=== PATIENT | female | born 1950 | race Caucasian/White ===

== ENCOUNTER → 2020-02-09 | Outpatient (CLI) | payer OTHER ==
[~2020-02-09] MED LIST: ASCRIPTIN ENTER81 MG PO; CARVEDILOL12.5 MG PO; CETIRIZINE10 MG PO; LISINOPRIL40 MG PO; METFORMIN500 MG PO; MULTIPLE VITAMI1 CAP PO; OMEGA-31000 MG PO; VITAMIN D1000 IU PO
== END | disposition home or self-care (01) ==
LOC: CT 09:00
DX: R35.0 Frequency of micturition (principal)

== ENCOUNTER 2023-05-07 15:25 | Emergency (ER) | payer OTHER ==
[~2023-05-07] VITALS: Ht 157.4 cm
[~2023-05-07 15:25] MED LIST changes: +METFORMIN HYD1000 MG PO; -METFORMIN500 MG PO
[2023-05-07] MEDS ORDERED: GLIPIZIDE5 M1 PO (15:42)
[2023-05-07] MEDS ORDERED: ROSUVASTATIN CA10 MG PO (15:43)
[2023-05-07] MEDS ORDERED: MAGNESIUM OXID400 MG PO (15:44)
[2023-05-07 16:04] LABS: BASO % 0.2 % (0.0-1.0); EOS # 0.1 10*3/uL (0.0-0.4); EOS % 1.2 % (1.0-4.0); HEMATOCRIT 38.8 % (37.0-47.0); LYMPH # 2.2 10*3/uL (1.3-4.4); LYMPH % 21.9 % (27.0-41.0); MEAN CELL VOLUME 88.8 fl (81.0-99.0); MEAN CORPUSCULAR HGB 29.1 pg (27.0-31.0); MEAN CORPUSCULAR HGB CONC 32.7 g/dl (33.0-37.0); MEAN PLATELET VOLUME 10.9 fl (9.6-12.3); MONO # 0.8 10*3/uL (0.1-1.0); MONO % 7.8 % (3.0-9.0); NEUT # 6.9 10*3/uL (2.3-7.9); NEUT % 68.6 % (47.0-73.0); PLATELET COUNT AUTOMATED 236 10*3/uL (130-400); RED BLOOD COUNT 4.37 10*6/uL (4.10-5.10); RED CELL DISTRI WIDTH 12.7 % (0-14.5)
[2023-05-07 16:06] LABS: BILIRUBIN Negative (Negative); BLOOD Negative (Negative); CLARITY Cloudy (Clear); COLOR Yellow (Yellow); GLUCOSE 3+ (Negative); KETONE Trace (Negative); LEUKO ESTERASE Negative (Negative); NITRITE Negative (Negative)
[2023-05-07 16:32] LABS: POTASSIUM 5.5 mmol/L (3.4-5.1); TOTAL PROTEIN 7.3 gm/dL (6.0-8.0)
[2023-05-07 16:43] LABS: BACTERIA 2+; WHITE BLOOD CELL CAST 0-2
== END 2023-05-07 22:34 | disposition home or self-care (01) ==
LOC: ED 15:25
PROVIDERS: Student in an Organized Health Care Education/Training Program
DX: N17.9 Acute kidney failure, unspecified (principal); R11.2 Nausea with vomiting, unspecified; N18.9 Chronic kidney disease, unspecified; E87.0 Hyperosmolality and hypernatremia; N39.0 Urinary tract infection, site not specified; R73.9 Hyperglycemia, unspecified; Z88.2 Allergy status to sulfonamides; Z88.8 Allergy status to other drugs, medicaments and biological substances; Z79.899 Other long term (current) drug therapy; Z79.82 Long term (current) use of aspirin; Z98.890 Other specified postprocedural states; Z90.711 Acquired absence of uterus with remaining cervical stump